=== PATIENT | male | born 1950 | race Caucasian/White ===

== ENCOUNTER → 2016-06-23 | Outpatient (CLI) | payer BC | END | disposition home or self-care (01) | LOC: PCVCIMAG 12:55 | PROVIDERS: ATTEND Internal Medicine | DX: E78.00 Pure hypercholesterolemia, unspecified (principal); I07.1 Rheumatic tricuspid insufficiency; I10 Essential (primary) hypertension; I48.91 Unspecified atrial fibrillation | CPT/HCPCS: 93306 ==

== ENCOUNTER → 2017-09-26 | Outpatient (CLI) | payer MEDICARE | END | disposition home or self-care (01) | LOC: PCVCCLINIC 13:23 | DX: I48.2 Chronic atrial fibrillation (principal); I10 Essential (primary) hypertension; E78.5 Hyperlipidemia, unspecified; F17.210 Nicotine dependence, cigarettes, uncomplicated; R94.31 Abnormal electrocardiogram [ECG] [EKG]; Z79.899 Other long term (current) drug therapy | CPT/HCPCS: 93005; G0463 ==

== ENCOUNTER → 2018-08-21 | Outpatient (CLI) | payer MEDICARE ==
--- NOTE | 2018-08-21 15:12 | PCVCIMAG ---
APPROVED REPORT Study performed: 08/21/2018 14:01:12 EXAM: Comprehensive 2D, Doppler, and color-flow Echocardiogram Patient Location: Echo lab Room #: 2Status: routine BSA: 2.36 HR: 76 bpmBP: 144/84 mmHg Rhythm: Atrial Fibrillation Other Information Study Quality: Adequate Risk Factors: Cardiac Risk Factors: HTN, Hyperlipidemia, Smoking Indications Atrial Fibrillation Leg Edema 2D Dimensions IVSd: 14.05 (7-11mm)LVOT Diam: 20.00 (18-24mm) LVDd: 52.60 mm PWd: 15.35 (7-11mm)Ascending Ao: 30.43 (22-36mm) LVDs: 35.93 (25-40mm) Left Atrium: 59.42 (27-40mm) Aortic Root: 32.71 mm LV Single Plane 4CH: 62.64 % LV Single Plane 2CH: 63.40 % Biplane EF: 62.8 % Volumes Left Atrial Volume (Systole) Single Plane 4CH: 112.32 mLSingle Plane 2CH: 118.90 mL LA ESV Index: 52.00 mL/m2 Aortic Valve AoV Peak Jimmy.: 1.86 m/s AO Peak Gr.: 13.83 mmHgLVOT Max P.31 mmHg AO Mean Gr.: 8.18 mmHgLVOT Mean P.82 mmHg AO V2 Mean: 1.36 m/sLVOT Max V: 1.04 m/s AO V2 VTI: 33.52 cmLVOT Mean V: 0.83 m/s SAMY (VTI): 2.02 [id number] V1 VTI: 21.67 cm SAMY Vmax: 1.74 cm2 SV (LVOT): 67.61 mL Mitral Valve MV Peak Gr.: 12.42 mmHg MV Mean Gr.: 5.77 mmHg MV Max Jimmy.: 1.76 m/s MV Mean Jimmy.: 1.10 m/s MV VTI: 328.31 mm MVA VTI: 205.94 mm2 Pulmonary Valve PV Peak Jimmy.: 1.08 m/sPV Peak Gr.: 4.69 mmHg Tricuspid Valve TR Peak Jimmy.: 2.85 m/sRAP Estimate: 10.00 mmHg TR Peak Gr.: 32.55 mmHg PA Pressure: 43.00 mmHg Left Ventricle The left ventricle is normal size. There is normal LV segmental wall motion. Mild concentric left ventricular hypertrophy. Left ventricular systolic function is normal. The left ventricular ejection fraction is within the normal range. LVEF is 60-65%. This study is not technically sufficient to allow evaluation of the LV diastolic function due to atrial fibrillation. Right Ventricle The right ventricle is normal size. The right ventricular systolic function is normal. Atria Left atrium is severely dilated. Right atrium is moderately dilated. Aortic Valve The aortic valve is mildly calcified, trileaflet. Trace aortic regurgitation There is no aortic valvular stenosis. Mitral Valve Moderate mitral annular calcification. Trace to mild mitral regurgitation. No evidence of mitral valve stenosis. Tricuspid Valve The tricuspid valve is normal in structure. Mild tricuspid regurgitation. Pulmonary artery pressure is 43 mmHg. Pulmonic Valve The pulmonary valve is normal in structure. Trace pulmonic regurgitation. Great Vessels The aortic root is normal in size. IVC is dilated and collapses <50% with inspiration. Pericardium There is no pericardial effusion. <Conclusion> Left ventricular systolic function is normal. There is normal LV segmental wall motion. LVEF 60-65%. Both atria are severely dilated. The aortic valve is mildly calcified, trileaflet. Trace aortic regurgitation, no stenosis Moderate mitral annular calcification. Trace to mild mitral regurgitation. Mild tricuspid regurgitation. Pulmonary artery pressure of 43 mmHg. There is no pericardial effusion.
== END | disposition home or self-care (01) ==
LOC: PCVCIMAG 13:55
PROVIDERS: ATTEND Internal Medicine
DX: I08.3 Combined rheumatic disorders of mitral, aortic and tricuspid valves (principal); I48.2 Chronic atrial fibrillation; E66.9 Obesity, unspecified; I11.0 Hypertensive heart disease with heart failure; I50.32 Chronic diastolic (congestive) heart failure; F17.200 Nicotine dependence, unspecified, uncomplicated; R94.31 Abnormal electrocardiogram [ECG] [EKG]; G47.33 Obstructive sleep apnea (adult) (pediatric); Z79.01 Long term (current) use of anticoagulants; Z79.899 Other long term (current) drug therapy; Z88.8 Allergy status to other drugs, medicaments and biological substances
CPT/HCPCS: 36415; 80061; 93005; 93306; G0463